=== PATIENT | female | born 1955 | race Asian ===

== ENCOUNTER 2024-05-01 19:09 | Inpatient (IN) | payer MEDICARE, MEDICAID ==
[~2024-05-01] VITALS: Ht 157.5 cm; Wt 49.9 kg
[2024-05-01 20:53] LABS: BASOPHILS % (AUTO) 0.5 % (0.0-2.0); EOSINOPHILS # (AUTO) 0.1 K/uL (0.0-0.7); EOSINOPHILS % (AUTO) 2.2 % (0.0-6.0); HEMATOCRIT 39 % (33-45); HEMOGLOBIN 13.5 g/dL (11.5-14.8); LYMPHOCYTES % (AUTO) 23.3 % (20.0-44.0); MEAN CORPUSCULAR HEMOGLOBIN 33 PG (26.0-33.0); MEAN CORPUSCULAR HGB CONC 35 g/dl (31.0-36.0); MEAN CORPUSCULAR VOLUME 97 fL (82-100); MONOCYTES # (AUTO) 0.3 K/uL (0.1-1.30); MONOCYTES % (AUTO) 7.1 % (2.0-12.0); NEUTROPHILS % (AUTO) 66.9 % (43.0-81.0); PLATELET COUNT (AUTO) 204 K/uL (150-450); RED BLOOD CELL COUNT(AUTO) 4.06 MIL/uL (4.0-5.2); RED CELL DISTRIBUTION WIDTH 13.5 % (11.5-15.0); WHITE BLOOD COUNT (AUTO) 4.4 K/uL (4.3-11.0)
[2024-05-01 21:01] LABS: CALCIUM, SERUM 8.7 mg/dL (8.5-10.1); CARBON DIOXIDE 29 mmol/L (21-32); CHLORIDE 106 mmol/L (98-107); CREATININE 0.9 mg/dL (0.6-1.3); GLUCOSE 105 mg/dL (74-106); POTASSIUM 3.4 mmol/L (3.5-5.1); SODIUM SERUM 141 mmol/L (136-145); UREA NITROGEN, BLOOD 21 mg/dL (7-18)
[2024-05-01 21:07] LABS: ACETAMINOPHEN < 10 ug/ml (10-30); ALANINE AMINOTRANSFERASE 15 U/L (12-78); ALBUMIN 3.4 g/dL (3.4-5.0); ALCOHOL, BLOOD < 3 mg/dL (0-10); ALKALINE PHOSPHATASE 91 U/L (46-116); ASPARTATE AMINOTRANSFERASE 11 U/L (15-37); BILIRUBIN,DIRECT 0.1 mg/dL (0.0-0.2); BILIRUBIN,TOTAL 0.4 mg/dL (0.2-1.0); SALICYLATE 0.4 mg/dL (2.8-20.0); TOTAL PROTEIN, SERUM 6.4 g/dL (6.4-8.2)
[2024-05-01 23:57] LABS: AMPHETAMINE, URINE NEGATIVE (NEGATIVE); BARBITURATE, URINE NEGATIVE (NEGATIVE); BENZODIAZEPINE, URINE NEGATIVE (NEGATIVE); CANNABINOID, URINE NEGATIVE (NEGATIVE); COCCAINE, URINE NEGATIVE (NEGATIVE); OPIATE, URINE NEGATIVE (NEGATIVE); PHENCYCLIDINE SCREEN,URINE NEGATIVE (NEGATIVE)
[2024-05-02 00:19] LABS: APPEARANCE,URINE CLEAR (CLEAR); BILIRUBIN,URINE NEGATIVE (NEGATIVE); BLOOD, URINE NEGATIVE Ery/uL (NEGATIVE); COLOR,URINE YELLOW (YELLOW); KETONES,URINE NEGATIVE (NEGATIVE); LEUKOCYTE ESTERASE ,URINE NEGATIVE (NEGATIVE); NITRITE, URINE NEGATIVE (NEGATIVE); PROTEIN,URINE NEGATIVE (NEGATIVE); UGLUCOSE NEGATIVE (NEGATIVE); UROBILINOGEN,URINE 0.2 EU/dL (0.2)
[2024-05-02] MEDS ORDERED: MULT1CAP44 PO (02:34)
[2024-05-02] MEDS ORDERED: ACET-2030 PO (02:34)
[2024-05-02] MEDS ORDERED: LORA-259 PO (02:34)
[2024-05-02] MEDS ORDERED: GLUC1KIT IM (02:34)
[2024-05-02] MEDS ORDERED: VENL75TA74 PO (02:34)
[2024-05-02] MEDS ORDERED: DOCU-141 PO (02:34)
[2024-05-02] MEDS ORDERED: MIRT7.5T10 PO (02:34)
[2024-05-02] MEDS ORDERED: ENOX30DI SQ (02:34)
[2024-05-02] MEDS ORDERED: CRAN400C PO (02:34)
[2024-05-02] MEDS ORDERED: ACET325C7 PO (02:34)
[2024-05-02] MEDS ORDERED: AMIN30LI66 PO (02:34)
[2024-05-02] MEDS ORDERED: POTA-88 PO (02:34)
[2024-05-02] MEDS ORDERED: ACETAMINOPHEN 325 MG TABLET PO PRN (03:00)
[2024-05-02] MEDS ORDERED: MAG HYDROX/AL HYDROX/SIMETH 30 ML UDC PO PRN (03:00)
[2024-05-02] MEDS ORDERED: MAGNESIUM HYDROXIDE 30 ML UDC PO PRN ×2 (03:00→10:00)
[2024-05-02] MEDS ORDERED: TEMAZEPAM 7.5 MG CAPSULE PO PRN (03:00)
[2024-05-02] MEDS: BLOOD SUGAR DIAGNOSTIC 1 EACH STRIP IN ONE (03:04)
[2024-05-02 03:18] VITALS: BP 131/90; TEMP 97.9; O2SAT 97
[2024-05-02 08:00] VITALS: BP 131/80; TEMP 98; O2SAT 100
[2024-05-02] MEDS ORDERED: MAGN400O6 PO (08:14)
[2024-05-02] MEDS ORDERED: NA P133E RC (08:14)
[2024-05-02] MEDS ORDERED: CRAN425C6 PO (08:14)
[2024-05-02] MEDS ORDERED: BISA10SU11 RC (08:14)
[2024-05-02] MEDS ORDERED: LORA-258 PO (08:15)
[2024-05-02 08:19] LABS: ALBUMIN 3.3 g/dL (3.4-5.0); BILIRUBIN,TOTAL 0.6 mg/dL (0.2-1.0); CALCIUM, SERUM 8.6 mg/dL (8.5-10.1); CREATININE 0.6 mg/dL (0.6-1.3); POTASSIUM 3.5 mmol/L (3.5-5.1); TOTAL PROTEIN, SERUM 6.2 g/dL (6.4-8.2)
[2024-05-02] MEDS: POTASSIUM CHLORIDE 20 MEQ TAB.PRT.SR PO SCH (08:57)
[2024-05-02] MEDS: DOCUSATE SODIUM 100 MG CAPSULE PO SCH (08:57)
[2024-05-02] MEDS: MULTIVITAMINS,THERAGRAN 1 UDTAB TABLET PO SCH (08:57)
[2024-05-02] MEDS: ENOXAPARIN SODIUM 30 MG/0.3 ML DISP.SYRIN SQ SCH (08:58)
[2024-05-02] MEDS: PROSOURCE / PROSTAT (PYXIS) 30 ML UDC PO SCH (09:00)
[2024-05-02] MEDS ORDERED: BISACODYL SUPP (10 MG) 10 MG/SUPP.RECT SUPP.RECT RC PRN (10:00)
[2024-05-02] MEDS ORDERED: Medication Not On Formulary EA (Acetaminophen (Tylenol) 650 MG) PO PRN (10:00)
[2024-05-02 16:00] VITALS: BP 128/85; TEMP 97.7; O2SAT 97
[2024-05-02] MEDS: VENLAFAXINE XR 75 MG CAP.SR.24H PO SCH (17:03)
[2024-05-02 20:00] VITALS: BP 143/92; TEMP 97.9; O2SAT 97
[2024-05-02] MEDS: MIRTAZAPINE 15 MG TABLET PO SCH (21:15)
[2024-05-03 07:39] LABS: CHOLESTEROL 234 mg/dL (<200); HDL CHOLESTEROL 77 mg/dL (40-60); LDL 146 mg/dL (0-99); TRIGLYCERIDES 78 mg/dL (30-150)
[2024-05-03 08:00] VITALS: BP 159/100; TEMP 97.9; O2SAT 96
[2024-05-03 16:00] VITALS: BP 162/90; TEMP 97.5; O2SAT 96
[2024-05-03] MEDS: ARIPIPRAZOLE 5 MG TABLET PO SCH (17:00)
[2024-05-03 20:00] VITALS: BP 145/90; TEMP 97.6; O2SAT 94
[2024-05-04 08:00] VITALS: BP 153/78; TEMP 98; O2SAT 96
[2024-05-04] MEDS: VENLAFAXINE XR 75 MG CAP.SR.24H PO SCH (08:58)
[2024-05-04] MEDS: ENSURE ENLIVE 237 ML LIQUID (VANILLA) PO SCH (13:16)
[2024-05-04 16:00] VITALS: BP 157/104; TEMP 97.5; O2SAT 98
[2024-05-04 21:06] VITALS: TEMP 98.1; O2SAT 97
[2024-05-05 08:00] VITALS: BP 128/93; TEMP 97.5; O2SAT 98
[2024-05-05] MEDS: VENLAFAXINE XR 150 MG CAP.SR.24H PO SCH (08:56)
[2024-05-05 16:00] VITALS: BP 139/104; TEMP 98; O2SAT 95
[2024-05-05 20:42] VITALS: BP 132/96; TEMP 98.1; O2SAT 95
[2024-05-06] MEDS: LORAZEPAM 0.5 MG TABLET PO PRN (08:30)
[2024-05-06 08:42] VITALS: BP 134/92; TEMP 97.5; O2SAT 94
[2024-05-06 16:28] VITALS: BP 121/101; TEMP 97.5; O2SAT 98
[2024-05-06 21:29] VITALS: BP 145/97; TEMP 97.6; O2SAT 96
[2024-05-07 08:00] VITALS: BP 146/91; TEMP 97.7; O2SAT 96
[2024-05-07 16:00] VITALS: BP 141/87; TEMP 97.8; O2SAT 95
[2024-05-07 20:03] VITALS: BP 102/71; TEMP 98.5; O2SAT 96
[2024-05-07] MEDS: MIRTAZAPINE 15 MG TABLET PO SCH (21:31)
[2024-05-08 08:00] VITALS: BP 143/95; TEMP 97.7; O2SAT 96
[2024-05-08] MEDS: ARIPIPRAZOLE 5 MG TABLET PO ONE (11:47)
[2024-05-08 16:00] VITALS: BP 136/90; TEMP 97.8; O2SAT 96
[2024-05-08] MEDS: ARIPIPRAZOLE 5 MG TABLET PO SCH (16:32)
[2024-05-08 19:14] LABS: BASOPHILS % (AUTO) 0.3 % (0.0-2.0); EOSINOPHILS # (AUTO) 0.1 K/uL (0.0-0.7); EOSINOPHILS % (AUTO) 1.8 % (0.0-6.0); HEMATOCRIT 43 % (33-45); HEMOGLOBIN 14.7 g/dL (11.5-14.8); LYMPHOCYTES % (AUTO) 20.1 % (20.0-44.0); MEAN CORPUSCULAR HEMOGLOBIN 33 PG (26.0-33.0); MEAN CORPUSCULAR HGB CONC 35 g/dl (31.0-36.0); MEAN CORPUSCULAR VOLUME 96 fL (82-100); MONOCYTES # (AUTO) 0.5 K/uL (0.1-1.30); MONOCYTES % (AUTO) 9.1 % (2.0-12.0); NEUTROPHILS # (AUTO) 3.5 K/uL (1.8-8.9); NEUTROPHILS % (AUTO) 68.7 % (43.0-81.0); PLATELET COUNT (AUTO) 225 K/uL (150-450); RED BLOOD CELL COUNT(AUTO) 4.45 MIL/uL (4.0-5.2); RED CELL DISTRIBUTION WIDTH 12.8 % (11.5-15.0); WHITE BLOOD COUNT (AUTO) 5.1 K/uL (4.3-11.0)
[2024-05-08 19:17] LABS: APPEARANCE,URINE SLIGHTLY CLOUDY (CLEAR); BILIRUBIN,URINE NEGATIVE (NEGATIVE); BLOOD, URINE NEGATIVE Ery/uL (NEGATIVE); COLOR,URINE YELLOW (YELLOW); KETONES,URINE 2+ mg/dL (NEGATIVE); LEUKOCYTE ESTERASE ,URINE 1+ (NEGATIVE); NITRITE, URINE NEGATIVE (NEGATIVE); PROTEIN,URINE 1+ mg/dl (NEGATIVE); UGLUCOSE NEGATIVE (NEGATIVE)
[2024-05-08 19:41] LABS: ALBUMIN 3.5 g/dL (3.4-5.0); BILIRUBIN,TOTAL 0.4 mg/dL (0.2-1.0); CALCIUM, SERUM 9.4 mg/dL (8.5-10.1); CREATININE 0.9 mg/dL (0.6-1.3); TOTAL PROTEIN, SERUM 6.7 g/dL (6.4-8.2)
[2024-05-08 19:51] LABS: ADD URINE CULTURE YES; BACTERIA,URINE Many /HPF (None Seen); RBC,URINE 0-2 /HPF (0-2); SQUAMOUS EPITHELIAL CELL,UR Few /HPF (None Seen); WBC,URINE 21-50 /HPF (0-3)
[2024-05-08 19:53] LABS: TRIPLE PHOSPHATE CRYSTAL,UR Moderate /HPF (None Seen)
[2024-05-08 20:33] VITALS: BP 123/73; TEMP 97.9; O2SAT 96
[2024-05-09 08:00] VITALS: BP 141/90; TEMP 97.8; O2SAT 98
[2024-05-09] MEDS: CEPHALEXIN MONOHYDRATE 250 MG CAPSULE PO SCH (08:21)
[2024-05-09 15:34] VITALS: BP 132/91; TEMP 97.8; O2SAT 97
[2024-05-09] MEDS: CEPHALEXIN MONOHYDRATE 500 MG CAPSULE PO SCH (17:00)
[2024-05-09 20:00] VITALS: BP 131/98; TEMP 97.7; O2SAT 95
[2024-05-10 08:00] VITALS: BP 153/106; TEMP 97.7; O2SAT 95
[2024-05-10 16:00] VITALS: BP 127/89; TEMP 98; O2SAT 100
[2024-05-10 20:00] VITALS: BP 122/85; TEMP 98.1; O2SAT 98
[2024-05-11 08:00] VITALS: BP 139/91; TEMP 97.6; O2SAT 94
[2024-05-11] MEDS: ARIPIPRAZOLE 5 MG TABLET PO SCH (12:38)
[2024-05-11 16:00] VITALS: BP 121/88; TEMP 97.7; O2SAT 95
[2024-05-11 20:00] VITALS: BP 123/86; TEMP 98.1; O2SAT 96
[2024-05-12 08:55] VITALS: BP 132/92; TEMP 98.1
[2024-05-12] MEDS: VENLAFAXINE XR 75 MG CAP.SR.24H PO SCH (09:00)
[2024-05-12 16:00] VITALS: BP 130/88; TEMP 98.9; O2SAT 96
[2024-05-12 21:40] VITALS: BP 123/88; TEMP 98.4; O2SAT 96
[2024-05-13 08:00] VITALS: BP 133/92; TEMP 97.9; O2SAT 97
[2024-05-13] MEDS: VENLAFAXINE XR 150 MG CAP.SR.24H PO SCH (12:53)
[2024-05-13 15:43] VITALS: BP 134/92; TEMP 97.9; O2SAT 95
[2024-05-13 21:21] VITALS: BP 123/89; TEMP 97.9; O2SAT 96
[2024-05-14 08:00] VITALS: BP 134/88; TEMP 98.6; O2SAT 96
[2024-05-14 16:00] VITALS: BP 145/96; TEMP 98.7; O2SAT 97
[2024-05-14 20:27] VITALS: BP 131/90; TEMP 98.8; O2SAT 94
[2024-05-15 08:00] VITALS: BP 125/87; TEMP 97.9; O2SAT 94
== END 2024-05-15 13:20 | DRG 885 ==
LOC: ER 19:11 → GPS 05-02 02:13
PROVIDERS: ADMIT Nurse Practitioner Psychiatric/Mental Health; ATTEND Nurse Practitioner Family
DX: F33.3 Major depressive disorder, recurrent, severe with psychotic symptoms (principal); N17.0 Acute kidney failure with tubular necrosis; R45.851 Suicidal ideations; F03.92 Unspecified dementia, unspecified severity, with psychotic disturbance; F03.93 Unspecified dementia, unspecified severity, with mood disturbance; E44.1 Mild protein-calorie malnutrition; N39.0 Urinary tract infection, site not specified; F29 Unspecified psychosis not due to a substance or known physiological condition; Z79.899 Other long term (current) drug therapy; F41.9 Anxiety disorder, unspecified; Z79.02 Long term (current) use of antithrombotics/antiplatelets; F39 Unspecified mood [affective] disorder; R13.10 Dysphagia, unspecified; R62.7 Adult failure to thrive; E87.6 Hypokalemia; R79.89 Other specified abnormal findings of blood chemistry; E88.09 Other disorders of plasma-protein metabolism, not elsewhere classified; B96.89 Other specified bacterial agents as the cause of diseases classified elsewhere; Z91.148 Patient's other noncompliance with medication regimen for other reason; Z91.51 Personal history of suicidal behavior
CPT/HCPCS: 36415; 70450-TC; 80048-TC; 80053-TC; 80061-TC; 80076-TC; 81001; 82962-TC; 85025-TC; 87081-TC; 87086-TC; 92526; 92611-TC; G0480; J1650